=== PATIENT | male | born 1965 | race Caucasian/White ===

== ENCOUNTER 2021-05-03 14:22 | Inpatient (IN) | payer OTHER, SELFPAY ==
[2021-05-03] VITALS (10 sets, daily range): BP systolic 131–184; BP diastolic 81–103; PULSE 60–90; RESP 16–28; TEMP 36.6–37.6; O2SAT 95–100
--- NOTE | ~2021-05-03 | XR_ITS ---
XR abdomen NG/feed tube insert DATE: 05/03/2021 17:14 INDICATION: NG tube placement TECHNIQUE: Portable upright AP chest on 05/03/2021 at 1706 hours COMPARISON: None FINDINGS: The NG tube makes a 180 degree turn at the proximal level of the left mainstem bronchus wit h the distal tip directed cephalad beneath the level of the aortic arch. Normal heart size. The lower lung zones are clear. No pleural effusion is evident. Bilateral renal excretion of contrast material. IMPRESSION: NG tube turned upon itself in the mid thoracic area Repositioning is recommended Reviewed, dictated and finalized at [facility]. Reviewed, dictated and finalized at [facility].
--- NOTE | ~2021-05-03 | CT_ITS ---
EXAMINATION: CT abdomen pelvis w con EXAM DATE: 05/03/2021 15:47 INDICATION: Obstruction. History of colitis and colon surgery. TECHNIQUE: Spiral CT of the abdomen and pelvis was performed following intravenous injection of 100 m L Omnipaque 350. Axial, coronal and sagittal images of the abdomen and pelvis were reviewed. The do se-length product (DLP) for this examination was 851.34 mGy-cm. The exposure was tailored according to patient size (auto mA exposure control), and iterative reconstruction (ASIR) was used as additiona l dose reduction technique. Comparison is made to prior examination from 08/01/2012. FINDINGS: Trace perihepatic ascites. The liver, adrenal glands and pancreas are unremarkable. Isha l vein dilated at 18 mm and there is mild splenomegaly. Possible portal hypertension. Large cholelith iasis, gallbladder otherwise unremarkable. Portal and splenic veins are patent. Kidneys enhance sym metrically. There is no hydronephrosis. There is left superior calyceal 6 mm stone. The prostate is unremarkable. Small left inguinal fat-containing hernia. The bladder is unremarkable. There is no retroperitoneal or pelvic lymphadenopathy. There is mild scattered arteriosclerotic disease. Patient has had subtotal colectomy with several anastomosis sites. Proximal small bowel is normal in caliber. Most of the mid small bowel is dilated, up to 4.5 cm, with relative transition point identif ied in the right lower quadrant. Only small amount of fluid in distal small bowel beyond this. There is some colonic fluid, diarrhea. There is small sliding gastroesophageal hiatal hernia. No free intraperitoneal gas. The heart is normal in size. There are no pericardial or pleural effusions. The lung bases are unremarkable. There are no osteoblastic or osteolytic lesions identified. IMPRESSION: 1. Small bowel obstruction, probably adhesion related. Intact anastomoses. 2. Colonic fluid. Correlate for diarrhea. 3. Mild splenomegaly. Possible portal hypertension. 4. Cholelithiasis. Reviewed, dictated and finalized at [facility].
--- NOTE | ~2021-05-03 | XR_ITS ---
SMALL BOWEL SERIES ONLY INDICATION: Small bowel obstruction. Previous colectomy. TECHNIQUE: Serial plain films and fluoroscopic spot films are performed following oral demonstration of water-soluble contrast. COMPARISON: 05/03/2021 FINDINGS: Contrast was followed sequentially through the small bowel. The mucosal pattern is unremar kable. No evidence for stricture, polyp, diverticula or obstruction of flow of contrast. Transit ti me is normal. The small bowel is mildly distended, although no obstruction is identified. There are s urgical changes consistent with subtotal colectomy. Transit time to the rectum through the small teddy l is less than 1 hour. IMPRESSION: 1: No evidence for bowel obstruction. Transit time to the rectum less than 1 hour. Reviewed, dictated and finalized at [facility]. IMPRESSION: 1: No evidence for bowel obstruction. Transit time to the rectum less than 1 h our.
[2021-05-03 15:00] LABS: Basophils Percent Auto 0.2 % (0.2-1.2); Eosinophils Percent Auto 0.1 % (0-4.4); Hematocrit 48.3 % (42.0-52.0); Hemoglobin 16.8 g/dL (14.0-18.0); Immature Granulocyte Absolute 0.04 K/mm3 (0.00-0.031); Immature Granulocyte Percent A 0.3 % (0-0.5); Lymphocytes Absolute Auto 0.75 K/mm3 (0.9-3.2); Mean Corpuscular HGB Conc 34.8 g/dl (32-36); Mean Corpuscular Hemoglobin 31.5 pg (26-34); Mean Corpuscular Volume 90.6 fl (80-100); Mean Platelet Volume 8.9 fl (7.4-10.4); Monocytes Absolute Auto 0.7 K/mm3 (0.1-0.6); Monocytes Percent Auto 5.7 % (2.6-8.5); Neutrophils Absolute Auto 10.9 K/mm3 (1.3-6.7); Neutrophils Percent Auto 87.7 % (45.5-73.1); Platelet Count Result 147 k/mm3 (150-375); Red Blood Count 5.33 M/mm3 (4.6-6.20); Red Cell Distribution Width 12.7 % (11.5-14.5); White Blood Count 12.5 K/mm3 (4.5-10.0)
[2021-05-03 15:10] LABS: Alanine Aminotransferase 47 U/L (4-50); Albumin Level 4.7 g/dL (3.5-5.1); Alkaline Phosphatase 83 U/L (38-126); Anion Gap 12 mmol/L (8-16); Aspartate Amino Transferase 38 U/L (17-59); Bilirubin,Total 1.8 mg/dL (0.2-1.3); Blood Urea Nitrogen 12 mg/dL (9-20); Calcium 9.8 mg/dL (8.4-10.2); Carbon Dioxide 24 mmol/L (22-30); Chloride 105 mmol/L (98-107); Estimated CRCL calculation 76 ml/min; Estimated Glomerular Filt Rate > 60; Glucose 145 mg/dL (75-110); Lipase 87 U/L (23-300); Potassium 4.2 mmol/L (3.4-5.0); Sodium 141 mmol/L (137-145)
--- NOTE | 2021-05-03 16:03 | ED.ABDPAIN ---
HPI - Abdominal Pain General Chief Complaint: Abdominal Pain Stated Complaint: ABD PAIN,COLOSTOMY ISSUES Time Seen by Provider: 05/03/21 15:00 History of Present Illness HPI narrative: Patient is a 56-year-old male who presents ER with abdominal pain and distention. Began this morning. Feels similar to bowel obstructions he has had in the past. He tried using laxative and massage to alleviate it but did not work. He received morphine by EMS which is helped with some of this discomfort. Receives the majority of his care at the [facility]. Related Data Allergies Allergy/AdvReac Type Severity Reaction Status Date / Time No Known Allergies Allergy Verified 05/03/21 14:29 Review of Systems Review of Systems: All systems reviewed & are unremarkable except as noted in HPI and below Constitutional: Constitutional: Denies chills, Denies fever(s) and Denies weakness Cardiovascular: Cardiovascular: Denies chest pain and Denies radiating jaw, neck or arm pain Respiratory: Respiratory: Denies cough and Denies dyspnea Gastrointestinal: Gastrointestinal: Reports abdominal pain, Reports bloating, Denies nausea and Denies vomiting [facility] Past Medical History Medical History (Updated 05/03/21 @ 17:18 by Elliot Hicks DO) Ulcerative colitis Surgical History Surgical History (Updated 05/03/21 @ 16:08 by Agustin Araya MD) History of appendectomy History of colectomy History of inguinal hernia repair Social History Social History (Updated 05/03/21 @ 17:11 by Elliot Hicks DO) Smoking status: Never smoker Alcohol intake: current Drinks per week: 2 Substance use: never Exam Narrative: Exam Narrative: GENERAL: Uncomfortable-appearing, well-nourished, and in no acute distress. HEAD: Normocephalic, atraumatic. ENT: Mucous membranes moist. CHEST: Clear to auscultation. No respiratory distress. HEART: Regular rate and rhythm. Normal peripheral pulses. ABDOMEN: Soft, tender palpation right lower quadrant, modestly distended EXTREMITIES: Normal range of motion. No edema. SKIN: Warm, dry, no rash. NEURO: Alert and oriented x3. PSYCH: Normal mood and affect. Course Course Emergency Course: Patient informed of diagnosis and treatment plan. Admit to general surgery. Vital Signs Vital signs: Vital Signs Temperature 97.9 F 05/03/21 14:23 Pulse Rate 64 05/03/21 14:23 Respiratory Rate 16 05/03/21 14:23 Blood Pressure 137/100 H 05/03/21 14:23 Pulse Oximetry 100 05/03/21 14:23 Temperature 97.9 F 05/03/21 14:23 Pulse Rate 64 05/03/21 15:02 Respiratory Rate 24 H 05/03/21 15:02 Blood Pressure 154/81 H 05/03/21 16:31 Pulse Oximetry 100 05/03/21 15:02 MDM - Abdominal Pain Lab Data Result diagrams: 05/03/21 14:53 05/03/21 14:53 Labs: Lab Results 05/03/21 05/03/21 05/03/21 Range/Units 14:53 14:53 16:42 WBC 12.5 H (4.5-10.0) K/mm3 RBC 5.33 (4.6-6.20) M/mm3 Hgb 16.8 (14.0-18.0) g/dL Hct 48.3 (42.0-52.0) % MCV 90.6 (80-100) fl MCH 31.5 (26-34) pg MCHC 34.8 (32-36) g/dl RDW 12.7 (11.5-14.5) % Plt Count 147 L (150-375) k/mm3 MPV 8.9 (7.4-10.4) fl Immature Gran % (Auto) 0.3 (0-0.5) % Neut % (Auto) 87.7 H (45.5-73.1) % Lymph % (Auto) 6.0 L (18.3-44.2) % Woods % (Auto) 5.7 (2.6-8.5) % Eos % (Auto) 0.1 (0-4.4) % Baso % (Auto) 0.2 (0.2-1.2) % Lymph # (Auto) 0.75 L (0.9-3.2) K/mm3 Woods # (Auto) 0.7 H (0.1-0.6) K/mm3 Eos # (Auto) 0.0 (0-0.3) K/mm3 Baso # (Auto) 0.0 (0.0-0.1) K/mm3 Abs Immat Gran (auto) 0.04 H (0.00-0.031) K/mm3 Absolute Neuts (auto) 10.9 H (1.3-6.7) K/mm3 Absolute Nucleated RBC 0.0 (0.0-0.012) K/mm3 Nucleated RBC % 0.0 (0.0-0.2) % Sodium 141 (137-145) mmol/L Potassium 4.2 (3.4-5.0) mmol/L Chloride 105 (98-107) mmol/L Carbon Dioxide 24 (22-30) mmol/L Anion Gap 12 (8-16) mmol/L BUN 12
[2021-05-03] MEDS: MORPHINE SULFATE (*CRX) 2 MG/ML INJ ×2 (16:44→16:48)
[2021-05-03] MEDS: ONDANSETRON INJ 4 MG/2 ML VIAL IV PUSH ×2 (16:51→23:48)
[2021-05-03 17:02] LABS: Add Urine Microscopic? YES; Appearance Urine Clear (Clear); Bilirubin Urine Negative (Negative); Blood Urine 1+ (Negative); Color Urine Amber (Yellow); Glucose Urine UA Negative (Negative); Ketones Urine 1+ mg/dL (Negative); Leukocyte Esterase Ur Negative LEU/UL (Negative); Mucus Urine Few /lpf; Nitrate Urine Negative (Negative); Protein Urine 2+ mg/dL (Negative); RBC Urine 21-50 /hpf (0-2); WBC Urine 0-3 /hpf
--- NOTE | 2021-05-03 17:03 | PM.IMHP ---
H&P: HPI History of Present Illness Date/Time: 05/03/21 17:03 Chief Complaint: Abdominal pain, Nausea, Vomiting Narrative: This is a 56 yo man who presents to the ED with abdominal pain that started around midnight last night. He began developing worsening pain throughout the morning to the point that he couldn't tolerate it any longer and came to the ED. He has had nausea and vomiting. He had a BM yesterday but hasn't had any since. He is not passing flatus. He has a hx of subtotal colectomy for ulcerative colitis and usually has 10-15 loose BM's per day. He has had obstructions in the past that have required NG placement, but never required surgery for them. He has also had early symptoms of a SBO that he has been able to treat on his own at home with bowel rest and laxatives. He tried this last night with no benefit. Review of Systems Review of Systems: All systems reviewed & are unremarkable except as noted in HPI and below Constitutional: Constitutional: Denies chills and Denies fever(s) Cardiovascular: Cardiovascular: Denies chest pain and Denies dyspnea Gastrointestinal: Gastrointestinal: Reports as per HPI [facility] Past Medical History Medical History (Updated 05/03/21 @ 17:18 by Elliot Hicks DO) Ulcerative colitis Surgical History Surgical History (Updated 05/03/21 @ 16:08 by Agustin Araya MD) History of appendectomy History of colectomy History of inguinal hernia repair Social History Social History (Updated 05/03/21 @ 17:11 by Elliot Hicks DO) Smoking status: Never smoker Alcohol intake: current Drinks per week: 2 Substance use: never Meds Home Medications and Allergies Allergies Allergy/AdvReac Type Severity Reaction Status Date / Time No Known Allergies Allergy Verified 05/03/21 14:29 Vital Signs Vital Signs - 24 hr 05/03/21 14:23 05/03/21 14:29 05/03/21 14:47 Temperature 36.6 C Pulse Rate 64 69 60 Respiratory Rate 16 28 H Blood Pressure 137/100 H 137/100 H 152/81 H Pulse Oximetry 100 100 100 05/03/21 15:02 05/03/21 16:31 Temperature Pulse Rate 64 Respiratory Rate 24 H Blood Pressure 184/103 H 154/81 H Pulse Oximetry 100 Exam Const: General: cooperative and no acute distress Nutritional Appearance: average body habitus Orientation/consciousness: patient oriented x3 HENMT: Head: normal to inspection Ears: hearing grossly normal bilaterally Mouth: Yes Normal oral and palatal mucosa present Eyes: General: appearance normal, both eyes and all related structures Sclera: sclerae normal EOM: EOMs intact bilaterally Neck: Neck: normal visual inspection and full ROM Resp: Effort & Inspection: normal respiratory effort and able to speak in complete sentences Cardio: Jugular venous distension: no JVD Rate: regular rate Rhythm: regular rhythm Heart sounds: S1 normal heart sound present and S2 normal heart sound present GI: Inspection: distended and scar (long vertical midline scar) GI Palp: Yes Soft to palpation, Yes Tenderness to palpation present (GI) (periumbilical), No Guarding due to palpation present (GI), No Hernia present, No Palpable mass present and No Rebound tenderness present Percussion: Yes dullness to percussion Auscultation: Hypoactive bowel sounds present Rectal Exam: deferred Back/Spine/Pelvis: Cervical Spine: normal cervical lordosis and cervical ROM normal Skin: General skin exam: normal color and no rashes or lesions noted Neuro: General: patient oriented x3, moves all extremities, no focal motor deficits and CN's II-XI intact bilaterally Speech: normal speech Extrem: General: normal to inspection, full ROM and no clubbing, cyanosis or edema Psych: Appearance: grossly normal Mental Status: mental status grossly normal Speech and movement: Normal speech and movement present Affect: normal affect Attitude: cooperative Thought process: Normal thought process present H&P: Results Labs Labs: Short CBC
[2021-05-03 17:04] LABS: Specific Grav Ur 1.044 (1.001-1.035)
[2021-05-03] MEDS: SODIUM CHLORIDE 0.9% IV 1,000 ML 125 ML IV CONT (19:52)
--- NOTE | 2021-05-03 20:22 | ADMGEN ---
This patient, Abhijit Mathew, was admitted to [facility] Surg Room 326-01. Patient/family oriented to hospital policies and general routines including ID bracelet, bed and alarms, visiting hours, pain management, procedures, bathroom and other care routines, personal items, smoking policy, room service/diet, and visiting hours. Information on how to activate the Rapid Response Team has been discussed. Patient/Family are encouraged to report perceived risks to care and to ask questions if they do not understand what they are told or what they should do.
[2021-05-03] MEDS: MORPHINE SULFATE (*CRX) 4 MG/ML INJ IV PUSH (23:48)
[2021-05-04] MEDS: SODIUM CHLORIDE 0.9% IV 1,000 ML 125 ML IV CONT ×2 (04:31→21:51)
[2021-05-04 06:00] VITALS: BP 123/79; PULSE 89; RESP 18; TEMP 37.4; O2SAT 97
--- NOTE | 2021-05-04 09:38 | PM.PNGS ---
Progress Note: A&P Assessment and Plan (1) Small bowel obstruction: Code(s): K56.609 - Unspecified intestinal obstruction, unspecified as to partial versus complete obstruction Status: Acute Assessment and Plan: Patient clinically improving. Bowels are moving and symptoms resolving. KUB last night shows NG tube curled up in the esophagus. Will remove NG tube this morning and get a Gastrografin small bowel follow-through. If the contrast moves through without evidence of a SBO, then we will start a liquid diet. Additional Plan Discussed plan of care with Dr. Hicks. Subjective Subjective Date/Time Seen: 05/04/21 09:38 Patient reports: no new complaints, feels better, pain is less, flatus and bowel movement Interval history: Patient feeling much better this morning. Reports significant improvement abdominal pain and resolution and bloating. He reports flatus and 4 bowel movements this morning. Reports mild headache. No other complaints at this time. Review of Systems Review of Systems: All systems reviewed & are unremarkable except as noted in HPI and below Constitutional: Constitutional: Reports no additional constitutional complaints and Reports headache(s) Gastrointestinal: Gastrointestinal: Reports as per HPI and Reports no additional gastrointestinal complaints Exam Const: General: no acute distress Orientation/consciousness: patient oriented x3 Resp: Effort & Inspection: normal respiratory effort Auscultation: clear to auscultation bilaterally Cardio: Rate: regular rate Rhythm: regular rhythm GI: Inspection: other (mildly distended) GI Palp: Yes Soft to palpation, Yes Tenderness to palpation present (GI) (mild diffuse tenderness, reportedly improved), No Guarding due to palpation present (GI) and No Rebound tenderness present Auscultation: normal bowel sounds Neuro: General: moves all extremities and no focal motor deficits Extrem: General: normal to inspection and no clubbing, cyanosis or edema Psych: Mental Status: mental status grossly normal Thought process: Normal thought process present Objective Data Vital Signs Vital Signs: Vital Signs - 24 hr 05/03/21 14:23 05/03/21 14:29 05/03/21 14:47 Temperature 97.9 F Pulse Rate 64 69 60 Respiratory Rate 16 28 H Blood Pressure 137/100 H 137/100 H 152/81 H Pulse Oximetry 100 100 100 05/03/21 15:02 05/03/21 16:31 05/03/21 18:21 Temperature Pulse Rate 64 84 Respiratory Rate 24 H 16 Blood Pressure 184/103 H 154/81 H Pulse Oximetry 100 98 05/03/21 18:34 05/03/21 22:00 05/03/21 23:04 Temperature 99.7 F H Pulse Rate 90 Respiratory Rate 18 Blood Pressure 152/84 H 131/85 Pulse Oximetry 98 95 05/03/21 23:45 05/04/21 06:00 Temperature 98.2 F 99.4 F Pulse Rate 89 Respiratory Rate 18 Blood Pressure 123/79 Pulse Oximetry 97 Intake/Output Intake/Output: Intake & Output 05/01/21 05/02/21 05/03/21 05/04/21 23:59 23:59 23:59 23:59 Intake Total 65 1000 Output Total 200 150 Balance -135 850 Meds/Results Medications: Active Medications Generic Name Dose Route Start Last Admin Trade Name Freq PRN Reason Stop Dose Admin Acetaminophen 650 mg in 65 mls @ 260 mls/hr 05/03/21 16:38 05/03/21 22:24 Ofirmev 650 Mg Ivpb IVPB 05/04/21 16:39 Infused Q6H PRN Infusion Mild Pain (1-3) or Fever Sodium Chloride 1,000 mls @ 125 mls/hr 05/03/21 16:40 05/04/21 08:52 Normal Saline Iv IV CONT Not Given .Q8H PETE Morphine Sulfate 4 mg 05/03/21 16:38 05/03/21 23:48 Morphine Sulfate (*Crx) 4 Mg/Ml Inj IV PUSH 4 mg Q2H PRN Administration Pain Rated 7-10 Ondansetron HCl 4 mg 05/03/21 16:38 05/03/21 23:48 Ondansetron Inj 4 Mg/2 Ml Vial IV PUSH 4 mg Q4H PRN Administration Nausea Radiology Results: ITS Impressions Abdomen/Pelvis CT 05/03/21 15:48 IMPRESSION: 1. Small bowel obstruction, probably adhesion related. Intact anastomoses. 2. C
[2021-05-04 14:49] VITALS: BP 115/65; PULSE 76; RESP 12; TEMP 37.2; O2SAT 100
[2021-05-04] MEDS: ACETAMINOPHEN 325 MG TABLET 650 MG PO (21:51)
[2021-05-04 22:00] VITALS: BP 116/69; PULSE 65; RESP 16; TEMP 36.8; O2SAT 97
[2021-05-05] MEDS: SODIUM CHLORIDE 0.9% IV 1,000 ML 125 ML IV CONT (05:56)
[2021-05-05 06:00] VITALS: BP 137/85; PULSE 73; RESP 16; TEMP 36.3; O2SAT 98
--- NOTE | 2021-05-05 11:03 | PM.DS ---
DS: Admitting Diagnosis Admitting Diagnosis Admitting Diagnosis: Small bowel obstruction Ulcerative colitis s/p subtotal colectomy DS: Discharge Diagnosis Discharge Diagnosis (1) Small bowel obstruction: Code(s): K56.609 - Unspecified intestinal obstruction, unspecified as to partial versus complete obstruction Status: Acute (2) Ulcerative colitis: Code(s): K51.90 - Ulcerative colitis, unspecified, without complications Status: Inactive Assessment and Plan: Follow-up with GI at the [facility] as scheduled. DS: Summary Hospital Course Reason for hospitalization: This is a 56 yo man with a history of subtotal colectomy for ulcerative colitis, who presented to the ED with abdominal pain. He also has a history of having small bowel obstructions in the past that have all been able to resolve with conservative measures. He typically has 10-15 loose BM's per day. ED work-up showed evidence of a small bowel obstruction on the CT scan. He was admitted to our service in this setting. Hospital Course: We treated the small bowel obstruction initially with conservative measures, including NG tube decompression, bowel rest, IV fluids, analgesics, and antiemetics. He was monitored with serial abdominal exams and imaging. On day 2, he began moving his bowels and was improving clinically. Gastrografin small bowel follow through was obtained and showed normal transit time to the rectum in less than 1 hour. The NG tube was then removed and he was started on a clear liquid diet. He tolerated this well and was slowly advanced to a regular diet today. He continues to move his bowels and symptoms have nearly completely resolved. He is still feeling slightly sore on palpation, but no longer having abdominal pain, nausea, or vomiting. The patient is stable for discharge today. Discharge instructions discussed with the patient. Status at Discharge Functional status at discharge: independent ambulation Overall status at discharge: patient is back to baseline Time Spent with Patient Time attestation: Total time spent providing and/or coordinating discharge services: Time spent: Less than 30 minutes Exam Const: General: cooperative and no acute distress Orientation/consciousness: patient oriented x3 Resp: Effort & Inspection: normal respiratory effort Auscultation: clear to auscultation bilaterally Cardio: Rate: regular rate Rhythm: regular rhythm GI: Auscultation: normal bowel sounds Skin: General skin exam: normal color Neuro: General: gait normal, moves all extremities, Normal light touch and pain sensation, no focal motor deficits and CN's II-XI intact bilaterally Cognition (Neuro): normal cognition Speech: normal speech Motor exam (neuro): 5/5 motor strength present throughout, Pronator motor function not present, No tremor noted, Normal motor muscle tone present throughout and Motor abnormalities not present Sensory Exam: normal sensation Coordination: [id number] test normal and [id number] test normal Extrem: General: normal to inspection and no clubbing, cyanosis or edema Psych: Mental Status: mental status grossly normal Affect: normal affect Thought process: Normal thought process present DS: Data Data Completed and Pending Completed studies during hospitalization: ITS Impressions Abdomen/Pelvis CT 05/03/21 15:48 IMPRESSION: 1. Small bowel obstruction, probably adhesion related. Intact anastomoses. 2. Colonic fluid. Correlate for diarrhea. 3. Mild splenomegaly. Possible portal hypertension. 4. Cholelithiasis. Abdomen X-Ray 05/03/21 17:16 IMPRESSION: NG tube turned upon itself in the mid thoracic area Repositioning is recommended Small Bowel X-Ray 05/04/21 12:28 IMPRESSION: 1: No evidence for bowel obstruction. Transit time to the rectum less than 1 hour. Discharge Plan Discharge Attending physician on discharge: Elliot Hicks Discharging Clinician: Joaquín Aguilar
--- NOTE | 2021-05-05 13:15 | PC.NURSE ---
Pt is being discharged. IV removed and discharge instructions reviewed with pt and his . Both exhibited good understanding of discharge instructions. Pt was assisted by wheelchair to the front of the building by staff.
== END 2021-05-05 13:10 | disposition home or self-care (01) | DRG 389 ==
LOC: ANHED 17:18 → ANH3MEDSUR 05-05 11:06
PROVIDERS: Admitting Provider Surgery; Emergency Provider Emergency Medicine; Visit Provider Nurse Practitioner Family
DX: K56.609 Unspecified intestinal obstruction, unspecified as to partial versus complete obstruction (principal); K51.90 Ulcerative colitis, unspecified, without complications; Z90.49 Acquired absence of other specified parts of digestive tract
CPT/HCPCS: 36415; 51701; 74177; 74250; 80053; 81001; 83690; 85025; 96365; 96366; 96375; 99285; A9270; J0131; J2270; J2405; J7030; Q9967

== ENCOUNTER 2021-05-24 18:35 | Emergency (ER) | payer OTHER, SELFPAY ==
[2021-05-24 18:44] VITALS: BP 145/96; PULSE 86; RESP 18; TEMP 36.8; O2SAT 98
--- NOTE | 2021-05-24 18:52 | ED.WOUNDLAC ---
HPI - Wound/Laceration General Chief Complaint: Wound/Laceration Stated Complaint: laceration Time Seen by Provider: 05/24/21 18:52 Source: patient Mode of arrival: ambulatory Limitations: no limitations History of Present Illness HPI narrative: Abhijit Del Valle is a 56 yo male with no PMH who comes in for laceration of his head from cracking his head up against a 3 lance trailer hitch POA. Less about 4 cm in length and patient requires a tetanus shot because he does not remember the last time he had one. Does not take any medication although he is nervous about getting the laceration repaired Related Data Home Medications Medication Instructions Recorded Confirmed No Home Medications 05/03/21 05/24/21 Allergies Allergy/AdvReac Type Severity Reaction Status Date / Time No Known Allergies Allergy Verified 05/24/21 18:39 Review of Systems Review of Systems: Narrative: CONSTITUTIONAL: Denies fever, chills, sweats. EYES: Denies visual changes, redness, discharge. ENT: Denies rhinorrhea, congestion, sore throat, otalgia. CARDIOVASCULAR: Denies chest pain, palpitations, edema. RESPIRATORY: Denies dyspnea, wheezing, cough GASTROINTESTINAL: Denies abdominal pain, nausea, vomiting, diarrhea. GENITOURINARY: Denies dysuria, hematuria, abnormal discharge SKIN: Denies rash or itching. 4 cm laceration to his head controlled bleeding NEUROLOGIC: Denies numbness, or focal weakness. PSYCHIATRIC: Denies anxiety or depression. [facility] Past Medical History Medical History Ulcerative colitis Surgical History Surgical History History of appendectomy History of colectomy History of inguinal hernia repair Family History Family History Sibling Diabetes mellitus Mother Lung cancer Social History Social History Smoking status: Never smoker Alcohol intake: current Drinks per week: 1 Substance use: never Gender identity (if verbalized by the patient): Male Spiritual care concerns: No Comments At time of signature, I agree with nursing past medical, surgical, social and family history. There is no relevant family history pertinent to the presenting complaint. Blood pressure is elevated at this visit probably due to mechanism of injury and pain-recommend follow-up in the next week with his primary care physician Exam Narrative: Exam Narrative: GENERAL: This is a well-nourished, well-developed patient, in [id number] distress. HEAD: normocephalic, atraumatic. EYES: Sclera clear/white. Vision is grossly intact. EARS: External ears normal, Hearing grossly intact. NOSE: External nose normal without nasal discharge, nares without redness, no rhinorrhea. THROAT: Mucous membranes moist, NECK: Neck supple, CARDIOVASCULAR: Regular rate and rhythm without murmurs, gallops, or rubs. RESPIRATORY: Clear to auscultation. Breath sounds equal bilaterally. No wheezes, rales, or rhonchi. GASTROINTESTINAL: Abdomen soft, , SKIN: warm, intact with no suspicious lesions or rash, good texture and turgor. Lacerations left top of head 4 cm in length control bleeding NEURO: awake, alert, and oriented to person, place and time. There were no obvious focal neurologic abnormalities. Steady gait EXTREMITIES: Normal range of motion. BACK: Nontender without deformity Course Course Emergency Course: [facility] scalp after hitting head Repaired with fior after cleaning; injection given Follow-up in a week with PCP to have fior removed. Staple remover given to patient Vital Signs Vital signs: Vital Signs Temperature 98.3 F 05/24/21 18:44 Pulse Rate 86 05/24/21 18:44 Respiratory Rate 18 05/24/21 18:44 Blood Pressure 145/96 H 05/24/21 18:44 Pulse Oximetry 98 0705
[2021-05-24] MEDS: TETANUS,DIPHTHERIA,AC PERTUSSIS ADULT (0.5 ML) BOOSTRIX IM (19:13)
== END 2021-05-24 19:25 | disposition home or self-care (01) ==
PROVIDERS: Emergency Provider Nurse Practitioner
DX: S01.01XA Laceration without foreign body of scalp, initial encounter (principal); W22.8XXA Striking against or struck by other objects, initial encounter; Z23 Encounter for immunization; Z85.9 Personal history of malignant neoplasm, unspecified
CPT/HCPCS: 12002; 90471; 90715; 99212; G0463

== ENCOUNTER 2022-02-18 01:49 | Inpatient (IN) | payer OTHER, SELFPAY ==
[2022-02-18] VITALS (13 sets, daily range): BP systolic 125–160; BP diastolic 63–94; PULSE 61–90; RESP 10–30; TEMP 36–37.3; O2SAT 93–100; BMI 30.2
--- NOTE | ~2022-02-18 | XR_ITS ---
EXAMINATION: XR abdomen NG/feed tube insert DATE: 02/18/2022 06:01 INDICATION: Nasogastric tube placement TECHNIQUE: A supine view of the abdomen and lower chest was obtained for evaluation of feeding tube placement. COMPARISON: None. FINDINGS: The nasogastric tube tip within the small within a small hiatal hernia. Bilateral nephrograms with ex creted contrast in the renal collecting systems from the earlier contrast-enhanced CT. No dilated loo ps of gas-filled bowel in the visualized abdomen. Mild linear discoid atelectasis at the left lung ba se. Heart size is normal. IMPRESSION: 1. Nasogastric tube within a small hiatal hernia. Reviewed, dictated and finalized at location A.
--- NOTE | ~2022-02-18 | CT_ITS ---
EXAMINATION: CT abdomen pelvis w con DATE: 02/18/2022 03:07 INDICATION: Abdominal pain. Small bowel obstruction. TECHNIQUE: Computed tomography (CT) of the abdomen and pelvis was performed with 100 mL Omnipaque-350 intravenous contrast. Automated exposure control and iterative reconstruction technique were employe d. The dose-length product was 831.18 mGy-cm. COMPARISON: None FINDINGS: Mild dependent atelectasis in bilateral lower lobes. Heart size is normal. No pericardial or pleural effusion. 2.5 cm calcified gallstone in the otherwise normal-appearing gallbladder. Liver, pancreas a nd bilateral adrenal glands are normal. 6 x 5 mm nonobstructing stone in the upper pole calyx of the left kidney. 1 mm stone at the upper pole calyx of the right kidney. Splenomegaly measuring 16.0 cm. Status post proctocolectomy with likely J-pouch formation in the pelvis with anal anastomosis. Small bowel obstruction with mildly dilated fluid-filled loops of small bowel extending to moderately dilat ed segment of small bowel with pseudofeces up to 4.6 cm medially proximal to the transition point in the right abdomen in a small bowel anastomosis. The small bowel distal to the anastomosis decompresse d. Bladder is normal. Mild prostatomegaly with 1.4 similar region of subtle nodular enhancement at th e right side of the gland. Small fat-containing left inguinal hernia. No free intraperitoneal gas or fluid. No pathologically enlarged abdominal or pelvic lymphadenopathy. Moderate lower thoracic spondy losis with severe spondylosis at L5-S1 and mild to moderate intervening lumbar spondylosis. Moderate to severe left and mild right hip osteoarthritis. IMPRESSION: 1. Small bowel obstruction at an ileal anastomosis in the right abdomen. 2. Cholelithiasis. 3. Splenomegaly. 4. Postoperative change of the proximal colectomy with anal anastomosis of a likely ileal J-pouch. 5. Small fat-containing left inguinal hernia. Reviewed, dictated and finalized at location A. IMPRESSION: 1. Small bowel obstruction at an ileal anastomosis in the right abdomen. 2. Cholelithiasis. 3. Splenomegaly. 4. Postoperative change of the proximal colectomy with anal anastomosis of a li leon ileal J-pouch. 5. Small fat-containing left inguinal hernia.
--- NOTE | 2022-02-18 01:56 | ED.ABDPAIN ---
HPI - Abdominal Pain General Chief Complaint: Abdominal Pain Stated Complaint: i have an obstruction Time Seen by Provider: 02/18/22 01:51 Source: patient and family Mode of arrival: wheelchair Limitations: no limitations History of Present Illness HPI narrative: Patient is a 56-year-old male with a history of colectomy, recurrent small bowel obstruction, presenting for evaluation of abdominal pain, distention, nausea, vomiting. Patient states that his symptoms are consistent with previous small bowel obstruction, states he has had over 15 small bowel obstructions in the past. Reports chills, diaphoresis, abdominal distention, aching, sharp pain that began around noon today. It is worse with movement. Patient feels improved if he lays on his left side. Patient reports he had a bowel movement this morning, but reports he is no longer passing any gas this afternoon and evening. He denies any chest pain or shortness of breath. Denies dysuria or hematuria. No history of nephrolithiasis. Patient with history of colectomy secondary to ulcerative colitis. Also history of appendectomy, inguinal hernia repair. I reviewed the patient's chart, he had admission approximately 1 year ago in which his small bowel obstruction resolved with observation. Related Data Home Medications Medication Instructions Recorded Confirmed No Home Medications 05/03/21 05/24/21 Allergies Allergy/AdvReac Type Severity Reaction Status Date / Time No Known Allergies Allergy Verified 05/24/21 18:39 Review of Systems Review of Systems: CONSTITUTIONAL: Denies fever, reports chills and diaphoresis EYES: Denies visual changes, redness, or discharge. ENT: Denies rhinorrhea, congestion, sore throat, or otalgia. CARDIOVASCULAR: Denies chest pain, palpitations, or edema. RESPIRATORY: Denies cough or dyspnea. GASTROINTESTINAL: Reports abdominal pain, nausea, vomiting GENITOURINARY: Denies dysuria or hematuria. SKIN: Denies rash or itching. MUSCULOSKELETAL: Denies back pain, joint pain, or myalgia. NEUROLOGIC: Denies headache, numbness, or weakness. FOR[facility]LY [facility] Past Medical History Medical History Ulcerative colitis Surgical History Surgical History History of appendectomy History of colectomy History of inguinal hernia repair Family History Family History Sibling Diabetes mellitus Mother Lung cancer Social History Social History Smoking status: Never smoker Alcohol intake: current Drinks per week: 1 Substance use: never Gender identity (if verbalized by the patient): Male Spiritual care concerns: No Exam Narrative: GENERAL: Awake, alert, distressed, uncomfortable appearing, diaphoretic HEAD: Normocephalic, atraumatic. EYES: PERRLA and EOMI. ENT: Nares clear, no rhinorrhea or epistaxis. Mucous membranes moist. NECK: Supple. CHEST: No respiratory distress, tachypneic, hyperventilating, lungs are clear to auscultation bilaterally HEART: Tachycardic rate, sinus rhythm ABDOMEN: Mild distention, tender throughout without rigidity or guarding, hypoactive bowel sounds in all 4 quadrants EXTREMITIES: Normal range of motion. No edema. SKIN: Warm, dry, no rash. NEURO:No focal deficits. Alert and oriented x3 Course Vital Signs Vital signs: Vital Signs Temperature 36.5 C 02/18/22 02:00 Pulse Rate 74 02/18/22 02:00 Respiratory Rate 28 H 02/18/22 02:00 Blood Pressure 143/84 H 02/18/22 02:00 Pulse Oximetry 98 02/18/22 02:00 Temperature 36.5 C 02/18/22 02:00 Pulse Rate 87 02/18/22 06:31 Respiratory Rate 14 02/18/22 06:31 Blood Pressure 147/92 H 02/18/22 06:31 Pulse Oximetry 98 02/18/22 06:31 MDM - Abdominal Pain MDM Narrative Medical decision making narrative: Patient presenting
[2022-02-18] MEDS: MORPHINE SULFATE (*CRX) 4 MG/ML INJ IV PUSH ×2 (02:05→03:57)
[2022-02-18] MEDS: ONDANSETRON INJ 4 MG/2 ML VIAL IV PUSH ×2 (02:05→07:56)
[2022-02-18] MEDS: SODIUM CHLORIDE 0.9% IV 1,000 ML 999 ML IV CONT (02:06)
[2022-02-18 02:13] LABS: Basophils Percent Auto 0.2 % (0.2-1.2); Hemoglobin 17.9 g/dL (14.0-18.0); Immature Granulocyte Absolute 0.04 K/mm3 (0.00-0.031); Immature Granulocyte Percent A 0.3 % (0-0.5); Lymphocytes Absolute Auto 2.77 K/mm3 (0.9-3.2); Lymphocytes Percent Auto 20.4 % (18.3-44.2); Mean Corpuscular HGB Conc 35.8 g/dl (32-36); Mean Corpuscular Hemoglobin 31.9 pg (26-34); Mean Corpuscular Volume 89.1 fl (80-100); Mean Platelet Volume 8.9 fl (7.4-10.4); Monocytes Absolute Auto 0.8 K/mm3 (0.1-0.6); Monocytes Percent Auto 5.7 % (2.6-8.5); Neutrophils Percent Auto 73.4 % (45.5-73.1); Platelet Count Result 207 k/mm3 (150-375); Red Blood Count 5.61 M/mm3 (4.6-6.20); Red Cell Distribution Width 12.6 % (11.5-14.5); White Blood Count 13.6 K/mm3 (4.5-10.0)
[2022-02-18 02:22] LABS: Alanine Aminotransferase 68 U/L (4-50); Albumin Level 4.9 g/dL (3.5-5.1); Alkaline Phosphatase 130 U/L (38-126); Anion Gap 12 mmol/L (8-16); Aspartate Amino Transferase 43 U/L (17-59); Bilirubin,Total 1.9 mg/dL (0.2-1.3); Blood Urea Nitrogen 14 mg/dL (9-20); Calcium 10.3 mg/dL (8.4-10.2); Carbon Dioxide 25 mmol/L (22-30); Chloride 103 mmol/L (98-107); Estimated CRCL calculation 82 ml/min; Estimated Glomerular Filt Rate > 60; Glucose 158 mg/dL (65-110); Lipase 133 U/L (23-300); Potassium 3.5 mmol/L (3.4-5.0); Sodium 140 mmol/L (137-145)
[2022-02-18 02:23] LABS: Lactic Acid Reflex 1.8 mmol/L (0.7-2.1)
[2022-02-18] MEDS: HYDROmorphone HCL INJ (*CRX) 1 MG/ML SYR IV PUSH (02:23)
--- NOTE | 2022-02-18 03:21 | PC.NURSE ---
Pt refusing straight catheterization, pt unable to provide urine sample at this time.
[2022-02-18] MEDS: HYDROmorphone HCL INJ (*CRX) 1 MG/ML SYR 0.5 MG IV PUSH ×2 (05:24→07:56)
[2022-02-18] MEDS: SODIUM CHLORIDE 0.9% IV 1,000 ML 125 ML IV CONT ×2 (06:47→20:25)
--- NOTE | 2022-02-18 07:13 | PC.NURSE ---
NG placed from 55 to 59 at [facility] per ERP Dr. Dallin HINTON.
[2022-02-18 07:37] LABS: SARS-CoV-2 RNA PCR Negative
--- NOTE | 2022-02-18 10:15 | PM.IMHP ---
H&P: HPI History of Present Illness Date/Time: Date of Service 02/18/22 1030 56M with a past medical history of Ulcerative Colitis s/p total colectomy and ileoanal j pouch, recurrent SBO who presented to the ED with abdominal pain. Patient says he was in his usual state of health until around noon yesterday. Says he abdomen started to feel painfully tight, which is how it usually feels when he has a bowel obstruction. He subsequently developed nausea and vomited once prior to coming to the ED. At baseline, he says he has 12-15 bowel movements a day. He has not had a bowel movement since noon yesterday and he has not had flatus since noon yesterday (02/17/2022). He denies fever, chills, cough, SOB, chest pain, dysuria. He says he vomited multiple times after arriving to the emergency department. Says he does not remember the color of his vomit. In ED, electrolytes normal, leukocytosis of [address] A/P w/ small bowel obstruction and ileus at anastomosis. KUB NGT in hiatal hernia. covid 19 negative. Chief Complaint: abdominal pain Review of Systems Constitutional: Constitutional: Denies body ache(s), Denies chills, Denies difficulty sleeping and Denies night sweats Eyes: Eyes: Denies as per HPI ENT: Denies nasal congestion Respiratory: Respiratory: Denies cough and Denies dyspnea Gastrointestinal: Gastrointestinal: Reports nausea and Reports vomiting PMFSH Past Medical History Medical History (Updated 02/18/22 @ 19:31 by Janee Salvador MD) Ulcerative colitis Surgical History Surgical History History of appendectomy History of colectomy History of inguinal hernia repair Family History Family History Sibling Diabetes mellitus Mother Lung cancer Social History Social History Smoking status: Never smoker Alcohol intake: current Drinks per week: 1 Substance use: never Gender identity (if verbalized by the patient): Male Spiritual care concerns: No Meds Home Medications and Allergies Home Medications Medication Instructions Recorded Confirmed Type No Home Medications 05/03/21 02/18/22 History Allergies Allergy/AdvReac Type Severity Reaction Status Date / Time No Known Allergies Allergy Verified 05/24/21 18:39 Vital Signs Vital Signs - 24 hr 02/18/22 02:00 02/18/22 02:16 02/18/22 02:44 Temperature 97.7 F Pulse Rate 74 69 Respiratory Rate 28 H 30 H Blood Pressure 143/84 H 149/94 H Pulse Oximetry 98 100 100 02/18/22 03:21 02/18/22 03:31 02/18/22 04:16 Temperature Pulse Rate 72 68 61 Respiratory Rate 16 12 10 L Blood Pressure 160/84 H 146/79 H 157/76 H Pulse Oximetry 97 97 97 02/18/22 05:01 02/18/22 05:46 02/18/22 06:31 Temperature Pulse Rate 69 77 87 Respiratory Rate 20 16 14 Blood Pressure 156/81 H 154/90 H 147/92 H Pulse Oximetry 97 98 98 02/18/22 08:49 02/18/22 14:57 02/18/22 15:50 Temperature 96.8 F L Pulse Rate 74 90 Respiratory Rate 16 18 Blood Pressure 134/75 126/74 Pulse Oximetry 96 96 93 Exam Narrative: GENERAL: NAD, cooperative HEENT: Normocephalic, atraumatic, anicteric, nares clear, oropharynx moist and clear, dentition ok NECK: Supple CV: Normal S1, S2, RRR, No MRG RESP: CTAB, Normal work of breathing. Abdomen: Soft, minimally distended EXTREMITIES: Warm and well perfused, no clubbing, cyanosis, or edema. +2 Distal pulses bilaterally. SKIN: warm, dry and intact. NEURO: CN 2-12 grossly H&P: Results Labs Labs: Short CBC 02/18/22 Range/Units 02:03 WBC 13.6 H (4.5-10.0) K/mm3 Hgb 17.9 (14.0-18.0) g/dL Hct 50.0 (42.0-52.0) % Plt Count 207 (150-375) k/mm3 BMP 02/18/22 02:03 Sodium 140 Potassium 3.5 Chloride 103 Carbon Dioxide 25 BUN 14 Creatinine 1.10 Glucose 158 H Calcium 10.3 H Liver Function 02/18/22
[2022-02-18] MEDS: KCL 20 MEQ/SW 100 ML 100 ML 50 MEQ IVPB (10:17)
--- NOTE | 2022-02-18 10:23 | ADMGEN ---
This patient, Abhijit Mathew, was admitted to [facility] Surg Room [id number]. Patient/family oriented to hospital policies and general routines including ID bracelet, bed and alarms, visiting hours, pain management, procedures, bathroom and other care routines, personal items, smoking policy, room service/diet, and visiting hours. Information on how to activate the Rapid Response Team has been discussed. Patient/Family are encouraged to report perceived risks to care and to ask questions if they do not understand what they are told or what they should do.
--- NOTE | 2022-02-18 13:47 | PM.CNGS ---
Assessment and Plan Assessment and plan (1) Small bowel obstruction: Code(s): K56.609 - Unspecified intestinal obstruction, unspecified as to partial versus complete obstruction Status: Acute Assessment and Plan: had BM recently, reports he is feeling much improved, will clamp NG and start sips of clears, hopefully cont to progress and able to remove NG and ADAT, encourage OOB, ambulation, will need endoscopy as outpt to evaluate anastomosis History of Present Illness Consult details Consult date: 02/18/22 Reason for consult: abdominal pain Requesting physician: Isiah Mcgee MD Narrative: Pt is a 56 y/o M c h/o UC s/p subtotal colectomy c ileoanal J pouch anastomosis in 1996 presenting c recurrent SBO. Pt reports current episode started around noon yesterday. Pt reports he had normal BM earlier in the day. Pt reports severe crampy abd pain assoc c N/V. Pt denies any bowel fxn since episode started. Pt reports he normally has 10-15 loose BMs daily. Pt has had multiple episode of SBO all treated conservatively. Review of Systems Constitutional: Constitutional: Reports anorexia, Denies chills, Reports fatigue, Denies lethargy, Denies malaise, Reports poor appetite, Denies weakness, Denies weight gain and Denies weight loss Eyes: Eyes: Reports no additional eye complaints ENT: Reports system reviewed and no additional complaints, except as documented Cardiovascular: Cardiovascular: Reports no additional cardiovascular complaints Respiratory: Respiratory: Reports no additional respiratory complaints Gastrointestinal: Gastrointestinal: Reports as per HPI, Reports abdominal pain, Reports belching, Reports bloating, Reports change in bowel habits, Reports constipation, Reports GI cramping, Reports loose stools, Reports nausea, Reports vomiting and Denies hematemesis Genitourinary: Genitourinary: Reports no additional male genitourinary complaints Musculoskeletal: Musculoskeletal: Reports no additional musculoskeletal complaints Integumentary/Breasts: Skin/Breast: Reports system reviewed and no additional complaints, except as docu Neurologic: Reports system reviewed and no additional complaints, except as documented Psychiatric: Psychiatric: Reports no additional psychiatric complaints Endocrine: Endocrine: Reports no additional endocrine complaints Hematologic/Lymphatic: Hematologic/Lymphatic: Reports no additional hematologic/lymphatic complaints Allergic/Immunologic: Allergic/Immunologic: Reports no additional allergic/immunologic complaints PMFSH Past Medical History Medical History Ulcerative colitis Surgical History Surgical History History of appendectomy History of colectomy History of inguinal hernia repair Family History Family History Sibling Diabetes mellitus Mother Lung cancer Social History Social History Smoking status: Never smoker Alcohol intake: current Drinks per week: 1 Substance use: never Gender identity (if verbalized by the patient): Male Spiritual care concerns: No Meds Home Medications and Allergies Home Medications Medication Instructions Recorded Confirmed Type No Home Medications 05/03/21 05/24/21 History Allergies Allergy/AdvReac Type Severity Reaction Status Date / Time No Known Allergies Allergy Verified 05/24/21 18:39 Vital Signs Vital Signs - 24 hr 02/18/22 02:00 02/18/22 02:16 02/18/22 02:44 Temperature 36.5 C Pulse Rate 74 69 Respiratory Rate 28 H 30 H Blood Pressure 143/84 H 149/94 H Pulse Oximetry 98 100 100 02/18/22 03:21 02/18/22 03:31 02/18/22 04:16 Temperature Pulse Rate 72 68 61 Respiratory Rate 16 12 10 L Blood Pressure 160/84 H 146/79 H 157/76 H Pulse Oximetry 97 97 97 0
[2022-02-19 05:37] VITALS: BP 120/73; PULSE 92; RESP 16; TEMP 37.7; O2SAT 98
[2022-02-19] MEDS: SODIUM CHLORIDE 0.9% IV 1,000 ML 125 ML IV CONT (06:10)
[2022-02-19 06:52] LABS: Hematocrit 41.8 % (42.0-52.0); Hemoglobin 14.5 g/dL (14.0-18.0); Mean Corpuscular HGB Conc 34.7 g/dl (32-36); Mean Corpuscular Hemoglobin 31.9 pg (26-34); Mean Corpuscular Volume 92.1 fl (80-100); Mean Platelet Volume 9.1 fl (7.4-10.4); Platelet Count Result 136 k/mm3 (150-375); Red Blood Count 4.54 M/mm3 (4.6-6.20); Red Cell Distribution Width 13.1 % (11.5-14.5); White Blood Count 3.5 K/mm3 (4.5-10.0)
[2022-02-19 07:04] LABS: Anion Gap 7 mmol/L (8-16); Blood Urea Nitrogen 25 mg/dL (9-20); Calcium 8.3 mg/dL (8.4-10.2); Carbon Dioxide 24 mmol/L (22-30); Chloride 104 mmol/L (98-107); Estimated CRCL calculation 82 ml/min; Estimated Glomerular Filt Rate > 60; Glucose 118 mg/dL (65-110); Magnesium 2.2 mg/dL (1.6-2.3); Phosphorus 2.2 mg/dL (2.5-4.5); Potassium 4.1 mmol/L (3.4-5.0); Sodium 135 mmol/L (137-145)
[2022-02-19 07:41] LABS: Band Neutrophils Percent 8 % (0-6); Basophils Absolute Manual 0.03 K/mm3 (0.0-0.1); Basophils Percent Manual 1 % (0-1); Lymphocytes Absolute Manual 0.38 K/mm3 (1.1-4.5); Monocytes Absolute Manual 0.49 K/mm3 (0.1-0.90); Monocytes Percent Manual 14 % (3-9); Neutrophils Absolute Manual 2.59 K/mm3 (1.3-6.7); Neutrophils Percent Manual 66 % (46-73); Platelet Estimate Decreased (Adequate); Total Cells Counted 100
[2022-02-19 08:00] VITALS: BP 105/59; PULSE 77; RESP 17; TEMP 36.6; O2SAT 97
[2022-02-19] MEDS: ENOXAPARIN 40 MG/0.4 ML SYRINGE SUB-Q (08:45)
[2022-02-19] MEDS: SODIUM PHOSPHATE 20 MM in DEXTROSE 5% IN WATER 250 ML 50 MM IVPB (08:45)
--- NOTE | 2022-02-19 11:47 | PM.PNGS ---
Progress Note: A&P Assessment and Plan (1) Small bowel obstruction: Code(s): K56.609 - Unspecified intestinal obstruction, unspecified as to partial versus complete obstruction Status: Acute Assessment and Plan: slowly improving, cont clears for now and slowly advance as tolerated, will need endoscopy as outpatient to evaluate pouch/anastomosis, ok to dc home from surgical standpoint Subjective Subjective Date/Time Seen: 02/19/22 11:47 feels better today, still c some mild abd pain/cramping, gina clears Review of Systems Review of Systems: All systems reviewed & are unremarkable except as noted in HPI and below Exam Const: General: cooperative, comfortable and no acute distress Nutritional Appearance: overweight Orientation/consciousness: patient oriented x3 Resp: Auscultation: clear to auscultation bilaterally Cardio: Rate: regular rate Rhythm: regular rhythm GI: Inspection: normal to inspection, distended and incision GI Palp: Yes Soft to palpation, Yes Tenderness to palpation present (GI), No Guarding due to palpation present (GI) and No Rigid due to palpation Objective Data Vital Signs Vital Signs: Vital Signs - 24 hr 02/18/22 14:57 02/18/22 15:50 02/18/22 22:00 Temperature 36.0 C L 37.3 C Pulse Rate 90 71 Respiratory Rate 18 20 Blood Pressure 126/74 125/63 Pulse Oximetry 96 93 98 02/19/22 05:37 02/19/22 08:00 Temperature 37.7 C H 36.6 C Pulse Rate 92 77 Respiratory Rate 16 17 Blood Pressure 120/73 105/59 L Pulse Oximetry 98 97 Intake/Output Intake/Output: Intake & Output 02/16/22 02/17/22 02/18/22 02/19/22 23:59 23:59 23:59 23:59 Intake Total 2300 2100 Output Total 1100 100 Balance 1200 2000 Meds/Results Medications: Active Medications Generic Name Dose Route Start Last Admin Trade Name Freq PRN Reason Stop Dose Admin Enoxaparin Sodium 40 mg 02/19/22 09:00 02/19/22 08:45 Enoxaparin 40 Mg/0.4 Ml Syringe SUB-Q 40 mg DAILY PETE Administration Hydromorphone HCl 0.5 mg 02/18/22 05:29 02/18/22 07:56 Hydromorphone Hcl Inj (*Crx) 1 Mg/Ml Syr IV PUSH 0.5 mg Q4H PRN Administration Pain Rated 7-10 Sodium Chloride 1,000 mls @ 125 mls/hr 02/18/22 05:30 02/19/22 06:10 Normal Saline Iv IV CONT 125 mls/hr .Q8H PETE Administration Sodium Phosphate 20 mm/ 256.6667 mls @ 50 mls/hr 02/19/22 07:46 02/19/22 08:45 Dextrose IVPB 02/19/22 12:53 50 mls/hr ONCE ONE Administration Ondansetron HCl 4 mg 02/18/22 05:29 02/18/22 07:56 Ondansetron Inj 4 Mg/2 Ml Vial IV PUSH 4 mg Q4H PRN Administration Nausea Radiology Results: ITS Impressions Abdomen X-Ray 02/18/22 06:52 IMPRESSION: 1. Nasogastric tube within a small hiatal hernia. Abdomen/Pelvis CT 02/18/22 08:35 IMPRESSION: 1. Small bowel obstruction at an ileal anastomosis in the right abdomen. 2. Cholelithiasis. 3. Splenomegaly. 4. Postoperative change of the proximal colectomy with anal anastomosis of a likely ileal J-pouch. 5. Small fat-containing left inguinal hernia. Labs Labs: Laboratory Results - last 24 hr 02/19/22 02/19/22 05:50 05:50 WBC 3.5 L RBC 4.54 L Hgb 14.5 D Hct 41.8 L MCV 92.1 MCH 31.9 MCHC 34.7 RDW 13.1 Plt Count 136 L MPV 9.1 Immature Gran % (Auto) Not Reportable Neut % (Auto) Not Reportable Lymph % (Auto) Not Reportable [place] % (Auto) Not Reportable Eos % (Auto) Not Reportable Baso % (Auto) Not Reportable Lymph # (Auto) Not Reportable [place] # (Auto) Not Reportable Eos # (Auto) Not Reportable Baso # (Auto) Not Reportable Abs Immat Gran (auto) Not Reportable Absolute Neuts (auto) Not Reportable Absolute Nucleated RBC Not Reportable Total Counted 100 Neutrophils % (Manual) 66 Band Neutrophils % 8 H Lymphocytes % (Manual) 11.0 L Monocytes % (Manual) 14 H Basophils % (Manual) 1 Nucleated RBC % Not Reportable Abs Neuts (Manual) 2.59 Abs Lymph
--- NOTE | 2022-02-19 14:13 | PM.DS ---
DS: Admitting Diagnosis Discharge Date 02/19/2022 Admitting Diagnosis abdominal pain DS: Discharge Diagnosis Discharge Diagnosis (1) Small bowel obstruction: Code(s): K56.609 - Unspecified intestinal obstruction, unspecified as to partial versus complete obstruction Status: Acute Assessment and Plan: CT A/P with small bowl obstruction. NGT 1.5L output. Patient feeling better and has had multiple bowel movements -Pain control with hydromorphone -IVFs -NGT -Appreciate recommendations from General Surgery (2) Leukocytosis: Code(s): D72.829 - Elevated white blood cell count, unspecified Status: Acute Assessment and Plan: Likely reactive. COVID 19 negative. No URI sx. UA with no signs infection. Will monitor fever curve. -Will get AM CXR -CBC AM (3) Ulcerative colitis: Code(s): K51.90 - Ulcerative colitis, unspecified, without complications Status: Acute Assessment and Plan: Hx of UC s/p total colectomy and lieoanal j pouch. DS: Summary Hospital Course Hospital Course: 56M with a past medical history of Ulcerative Colitis s/p total colectomy & ileoanal j pouch, recurrent SBO who was admitted for a small bowel obstruction after developing abdominal pain, nausea vomiting and no longer having his usual 12-15 bowel movements a day. CT abomen pelvis showed a small bowel obstruction at the ileal anastomosis. General Surgery was consulted. NGT was placed. Patient had a bowel movement and felt better. He desired to be discharged home on a clear liquid diet and General surgery agreed this was permissible. Patient advised to follow up with PCP in a week and with general surgery for an endoscopy. Phosphorus was noted to be low on the morning of discharged, so patient was given sodium phosphate. Patient discharged to home on a clear liquid diet. Time Spent with Patient Time attestation: Total time spent providing and/or coordinating discharge services: Exam Narrative: GENERAL: NAD, cooperative HEENT: Normocephalic, atraumatic, anicteric NECK: Supple CV: Normal S1, S2, RRR, No MRG RESP: CTAB, Normal work of breathing. Abdomen: Soft, nontender, minimally distended. +BS, no peritoneal signs. no guarding. EXTREMITIES: Warm and well perfused, no clubbing, cyanosis, or edema. SKIN: warm, dry and intact. NEURO: CN 2-12 grossly intact DS: Data Data Completed and Pending Labs on day of discharge: Labs from last 24 hours 02/19/22 02/19/22 05:50 05:50 WBC 3.5 L RBC 4.54 L Hgb 14.5 D Hct 41.8 L MCV 92.1 MCH 31.9 MCHC 34.7 RDW 13.1 Plt Count 136 L MPV 9.1 Immature Gran % (Auto) Not Reportable Neut % (Auto) Not Reportable Lymph % (Auto) Not Reportable [place] % (Auto) Not Reportable Eos % (Auto) Not Reportable Baso % (Auto) Not Reportable Lymph # (Auto) Not Reportable [place] # (Auto) Not Reportable Eos # (Auto) Not Reportable Baso # (Auto) Not Reportable Abs Immat Gran (auto) Not Reportable Absolute Neuts (auto) Not Reportable Absolute Nucleated RBC Not Reportable Total Counted 100 Neutrophils % (Manual) 66 Band Neutrophils % 8 H Lymphocytes % (Manual) 11.0 L Monocytes % (Manual) 14 H Basophils % (Manual) 1 Nucleated RBC % Not Reportable Abs Neuts (Manual) 2.59 Abs Lymphs (Manual) 0.38 L Abs Monocytes (Manual) 0.49 Abs Basophils (Manual) 0.03 Platelet Estimate Decreased Sodium 135 L Potassium 4.1 Chloride 104 Carbon Dioxide 24 Anion Gap 7 L BUN 25 H D Creatinine 1.10 Estim Creat Clear Calc 82 Estimated GFR > 60 Glucose 118 H Calcium 8.3 L Phosphorus 2.2 L Magnesium 2.2 Preliminary micro results at discharge 02/18/22 02:03 Blood Culture - Preliminary Blood 02/18/22 02:03 Blood Culture - Preliminary Blood ITS Impressions Abdomen X-Ray 02/18/22 06:52 IMPRESSION: 1. Nasogastric tube within a small hiatal hernia. Abdomen/
== END 2022-02-19 15:02 | disposition home or self-care (01) | DRG 390 ==
LOC: ANHED 07:08 → ANH3MEDSUR 11:32
PROVIDERS: Admitting Provider Internal Medicine; Emergency Provider Emergency Medicine; Visit Provider Family Medicine
DX: K56.609 Unspecified intestinal obstruction, unspecified as to partial versus complete obstruction (principal); D72.829 Elevated white blood cell count, unspecified; Z20.822 Contact with and (suspected) exposure to COVID-19; Z90.49 Acquired absence of other specified parts of digestive tract; Z87.19 Personal history of other diseases of the digestive system
CPT/HCPCS: 36415; 74018; 74177; 80048; 80053; 83605; 83690; 83735; 84100; 85025; 87040; 96361; 96374; 96375; 96376; 99285; C9803; J0131; J1170; J1650; J2270; J2405; J3480; J7030; J7060; Q9967; U0003; U0005

== ENCOUNTER 2022-04-05 16:38 | Emergency (ER) | payer OTHER, SELFPAY ==
[2022-04-05 17:00] VITALS: BP 134/90; PULSE 62; RESP 18; TEMP 36.3; O2SAT 98
--- NOTE | 2022-04-05 17:23 | ED.EYEPROB ---
HPI - Eye Problem General Chief complaint: Eye Problems Stated complaint: Lt Eye Irritation Time Seen by Provider: 04/05/22 17:45 Source: patient and RN notes reviewed Mode of arrival: ambulatory Limitations: no limitations History of Present Illness HPI Narrative: 57-year-old male presents concern for eye pain with possible foreign body. Reports this morning he felt like he had an eyelash in his left eye, he tried flushing it with water several times. Reports he has had irritation throughout the day, its mildly relieved when he closes his eye. He denies vision changes. He is not a contact lens wearer. He denies purulent drainage. chief complaint: eye pain Related Data Home Medications Medication Instructions Recorded Confirmed Unknown Nsaid 04/05/22 Allergies Allergy/AdvReac Type Severity Reaction Status Date / Time No Known Allergies Allergy Verified 04/05/22 17:53 Review of Systems Review of Systems: CONSTITUTIONAL: Denies malaise, chills, sweats, or fever. EYES: Denies visual changes. Reports left eye redness, irritation ENT: Denies rhinorrhea, congestion, sinus pain, otalgia or sore throat. SKIN: Denies rash or itching. NEUROLOGIC: Denies numbness, weakness, or headache. PSYCHIATRIC: Denies anxiety or depression. All systems reviewed & are unremarkable except as noted in HPI and below PMFSH Past Medical History Medical History (Updated 04/05/22 @ 18:00 by Hali Caballero NP) Ulcerative colitis Surgical History Surgical History History of appendectomy History of colectomy History of inguinal hernia repair Family History Family History Sibling Diabetes mellitus Mother Lung cancer Social History Social History Smoking status: Never smoker Alcohol intake: current Drinks per week: 1 Substance use: never Gender identity (if verbalized by the patient): Male Spiritual care concerns: No Comments At time of signature, agree with nursing past medical, surgical, social and family history. There is no relevant family history pertinent to the presenting complaint Exam Narrative: GENERAL: Well-appearing, well-nourished, and in no acute distress. HEAD: Normocephalic, atraumatic. EYES: PERRLA, sclera clear, and EOMI. No nystagmus. Left sclera injected; small black conchita noted upon exam, easily removed with flushing, small corneal abrasion noted upon Jauregui lamp exam, see note. Upper and lower eyelid unremarkable, no periorbital edema noted ENT: Nares clear, turbinates pink, no rhinorrhea or epistaxis. Mucous membranes moist. TM pearly mcintosh with sharp light reflex bilaterally; no tragal tenderness. NECK: Supple. CHEST: No respiratory distress. Speaks in full sentences. HEART: Regular rate and rhythm. SKIN: Warm, dry, no visible rash. NEURO: Alert and oriented x3. PSYCH: Normal mood and affect Course Course Emergency Course: Patient is aware of diagnosis, understands and agrees to treatment plan. Anticipatory guidance given. Patient agrees to follow-up as directed and is aware of reasons to seek care at the emergency department. Portions of this record may have been created with voice recognition software Level of Care: Express Care Visit Vital Signs Vital signs: Vital Signs Temperature 97.4 F L 04/05/22 17:00 Pulse Rate 62 04/05/22 17:00 Respiratory Rate 18 04/05/22 17:00 Blood Pressure 134/90 04/05/22 17:00 Pulse Oximetry 98 04/05/22 17:00 Temperature 97.4 F L 04/05/22 17:00 Pulse Rate 62 04/05/22 17:00 Respiratory Rate 18 04/05/22 17:00 Blood Pressure 134/90 04/05/22 17:00 Pulse Oximetry 98 04/05/22 17:00 Reviewed. Procedures Other Procedure Procedure 1: Other Procedure: Tetracaine 1 gtt instilled in left eye, fluorescein stain applied. Corneal abrasion noted upon jauregui
== END 2022-04-05 18:07 | disposition home or self-care (01) ==
PROVIDERS: Emergency Provider Nurse Practitioner
DX: S05.02XA Injury of conjunctiva and corneal abrasion without foreign body, left eye, initial encounter (principal); X58.XXXA Exposure to other specified factors, initial encounter
CPT/HCPCS: 99213; A9270; G0463

== ENCOUNTER 2023-04-20 14:58 | Emergency (ER) | payer OTHER, SELFPAY ==
[2023-04-20 15:17] VITALS: BP 140/83; PULSE 113; RESP 18; TEMP 36.2; O2SAT 98
--- NOTE | 2023-04-20 15:26 | ED.SKABFB ---
HPI - Skin/Abscess/Foreign Bdy General Chief complaint: Skin/Abscess/Foreign Body Stated complaint: rash Time Seen by Provider: 04/20/23 15:40 Source: patient, RN notes reviewed and old records reviewed Mode of arrival: ambulatory Limitations: no limitations History of Present Illness HPI narrative: 58-year-old male presents to the [facility] with redness, inflammation, itching, pain 17 days post hip replacement Patient reports that he had a hip replacement 17 days ago at the [facility]. states since then had a small red area of the surrounding tissue to the surgical site that has Steri-Strips in place. Since then area has become increased redness that is now into his abdomen, down to his knee and into the left buttock. States that he called the primary care provider and ortho clinic they told him just to take Benadryl. Patient comes here for further evaluation. Onset (ago): day(s) (17) Related Data Home Medications Medication Instructions Recorded Confirmed Unable to Obtain Home Medications 04/20/23 04/20/23 Allergies Allergy/AdvReac Type Severity Reaction Status Date / Time No Known Allergies Allergy Verified 04/20/23 15:22 Review of Systems Review of Systems: All systems reviewed & are unremarkable except as noted in HPI and below Constitutional: Constitutional: Reports no additional constitutional complaints Eyes: Eyes: Reports no additional eye complaints ENT: Reports system reviewed and no additional complaints, except as documented Cardiovascular: Cardiovascular: Reports no additional cardiovascular complaints, Denies chest pain and Denies dyspnea Respiratory: Respiratory: Reports no additional respiratory complaints, Denies chest congestion, Denies cough and Denies dyspnea Gastrointestinal: Gastrointestinal: Reports no additional gastrointestinal complaints, Denies abdominal pain, Denies nausea and Denies vomiting Musculoskeletal: Musculoskeletal: Reports no additional musculoskeletal complaints Integumentary/Breasts: Skin/Breast: Reports as per HPI, Reports erythema, Reports rash and Reports skin swelling Neurologic: Reports system reviewed and no additional complaints, except as documented Psychiatric: Psychiatric: Reports no additional psychiatric complaints Allergic/Immunologic: Allergic/Immunologic: Reports no additional allergic/immunologic complaints [facility] Past Medical History Medical History Ulcerative colitis Surgical History Surgical History (Updated 04/20/23 @ 20:11 by Hali Frost APRN) History of appendectomy History of colectomy History of inguinal hernia repair History of left hip replacement 5/23 Family History Family History Sibling Diabetes mellitus Mother Lung cancer Social History Social History Smoking status: Never smoker Alcohol intake: current Drinks per week: 1 Substance use: never Gender identity (if verbalized by the patient): Male Spiritual care concerns: No Comments At the time of my signature, I reviewed and agree with the nursing past medical, surgical, social, and family history. There is no relevant family history pertinent to the patient complaint. Exam Const: General: cooperative, healthy appearing, comfortable, no acute distress, well developed, alert and well nourished Nutritional Appearance: well nourished Orientation/consciousness: patient oriented x3 Limitations: no limitations HENMT: Head: normal to inspection Ears: hearing grossly normal bilaterally and external ears normal Face/Nose/Sinus: Normal external nose present, Normal nares present, Normal nasal mucous membranes and turbinates present and normal facial exam Face and sinus: normal facial exam Mouth: Yes lip normal Eyes: General: appearance normal, both eyes and all related structures Alignment and Posit
== END 2023-04-20 16:30 | disposition short-term general hospital (02) ==
PROVIDERS: Emergency Provider Nurse Practitioner
DX: T81.40XA Infection following a procedure, unspecified, initial encounter (principal); Z96.642 Presence of left artificial hip joint
CPT/HCPCS: 99211; 99212; G0463

== ENCOUNTER 2025-02-25 13:30 | Emergency (ER) | payer OTHER, SELFPAY ==
--- NOTE | ~2025-02-25 | XR_ITS ---
XR finger 5th LT min 2V 02/25/2025 14:07 Indication: Trauma. Open wound. Procedure: 4 views left fifth finger Comparison: No prior studies for comparison. Findings: There is a comminuted mildly displaced intra-articular oblique fracture involving the base of the left fifth distal phalanx. Moderate soft tissue swelling. There is fixed flexion deformity of the DIP joint. Impression: 1: Comminuted mildly displaced intra-articular oblique fracture left fifth distal phalanx proximally. Reviewed, dictated and finalized at location A. Impression: 1: Comminuted mildly displaced intra-articular oblique fracture left fifth dist al phalanx proximally.
[2025-02-25 13:37] VITALS: BP 152/93; PULSE 77; RESP 18; TEMP 36.4; O2SAT 100
--- NOTE | 2025-02-25 13:37 | ED.WOUNDLAC ---
HPI - Wound/Laceration General Chief Complaint: Wound/Laceration Stated Complaint: LT Hand Finger Cut Time Seen by Provider: 02/25/25 13:31 Source: patient Mode of arrival: ambulatory Limitations: no limitations History of Present Illness HPI narrative: Patient is a 60-year-old male who presents with left pinky laceration after getting it caught by a tow hitch. Patient reports it is throbbing. Covered wound with paper towel as it is still actively bleeding. States tetanus shot is not up-to-date. Patient states he has full sensation of finger. Related Data Allergies Allergy/AdvReac Type Severity Reaction Status Date / Time No Known Allergies Allergy Verified 02/25/25 14:40 Review of Systems Review of Systems: All systems reviewed & are unremarkable except as noted in HPI and below Constitutional: Constitutional: Denies body ache(s), Denies chills, Denies fatigue, Denies fever(s), Denies headache(s), Denies malaise and Denies weakness Eyes: Eyes: Denies blurry vision, Denies irritation and Denies loss of vision ENT: Denies otalgia, Denies headache(s), Denies nasal discharge, Denies sinus pain and Denies sore throat Cardiovascular: Cardiovascular: Denies chest pain, Denies irregular heart rhythm and Denies dyspnea Respiratory: Respiratory: Denies dyspnea Gastrointestinal: Gastrointestinal: Denies abdominal pain, Denies melena, Denies hematochezia, Denies diarrhea, Denies nausea and Denies vomiting Musculoskeletal: Musculoskeletal: Denies back pain, Denies myalgias and Denies arthralgias Integumentary/Breasts: Skin/Breast: Denies pruritus, Denies rash and Reports wounds Neurologic: Denies headache(s), Denies loss of vision and Denies weakness Psychiatric: Psychiatric: Reports no additional psychiatric complaints Endocrine: Endocrine: Denies fatigue PMFSH Past Medical History Medical History Ulcerative colitis Surgical History Surgical History History of left hip replacement 04/11 History of inguinal hernia repair History of appendectomy History of colectomy Family History Family History Sibling Diabetes mellitus Mother Lung cancer Social History Social History Smoking status: Never smoker Alcohol intake: current Drinks per week: 1 Substance use: never Gender identity (if verbalized by the patient): Male Spiritual care concerns: No Comments At time of signature, agree with nursing past medical, surgical, social and family history. There is no relevant family history pertinent to the presenting complaint. Exam Const: General: cooperative, healthy appearing, comfortable, no acute distress and well nourished Nutritional Appearance: well nourished Orientation/consciousness: patient oriented x3 Limitations: no limitations HENMT: Head: normal to inspection, normocephalic and atraumatic Ears: hearing grossly normal bilaterally and external ears normal Face/Nose/Sinus: Normal external nose present, normal facial exam and face symmetric Face and sinus: normal facial exam and face symmetric Mouth: Yes lip normal Eyes: General: appearance normal, both eyes and all related structures Alignment and Position: alignment normal and position normal Periorbital: periorbital findings normal Eyelids: eyelids normal Pupils: Equal, round and reactive pupils present EOM: EOMs intact bilaterally Neck: Neck: normal visual inspection, full ROM and supple Chest: Chest palpation & inspection: normal inspection of the chest Resp: Effort & Inspection: normal respiratory effort and able to speak in complete sentences Auscultation: clear to auscultation bilaterally Cardio: Rate: regular rate Rhythm: regular rhythm Heart sounds: S1 normal heart sound present and S2 normal heart sound present GI: Inspection: normal to inspection Skin: General skin exam: normal color and no rashes or lesions noted Neuro: General: patient oriented x3 and moves all extremities Cranial nerves: Yes Equal, round and reactive pupils present Speech: normal speech Gait exam (Neuro): Normal gait present Extrem: General: normal to inspection, full ROM and no edema Left upper extremity: hand normal capillary refill, neuromotor exam normal Details: wrist extension normal, thumb opposition normal, thumb IP flexion normal, thumb ADduction normal and fingers 2-5 ABduction normal, neurosensory exam normal Details: radial nerve sensory function normal, ulnar nerve sensory function normal, median nerve sensory function normal and digital nerve sensory function normal, tendon exam normal Location: of all digits Details: extensor tendon, flexor digitorum profundus and flexor digitorum superficialis, tenderness of the 5th digit at the distal phalanx, normal ROM of fingers, swelling of the 5th digit at the distal phalanx and laceration 5th digit dorsal aspect distal Details: linear (3 cm with 0.75 cm gape), actively bleeding and involving subcutaneous tissue; no foreign body present Hand/finger images:  1. 3 cm laceration, not well approximated Psych: Appearance: grossly normal and well kempt Mental Status: mental status grossly normal Speech and movement: Normal speech and movement present Affect: normal affect Attitude: cooperative Thought process: Normal thought process present Course Course Emergency Course: Patient is aware of diagnosis, understands and agrees to treatment plan. Anticipatory guidance given. Patient agrees to follow-up as directed and is aware of reasons to seek care at the emergency department. Portions of this record may have been created with voice recognition software Level of Care: Express Care Visit Vital Signs Vital signs: Reviewed Procedures Laceration Laceration 1: Date: 02/25/25 Time: 14:45 Site: hand Side (If applicable): left Size (cm): 3 Description: linear (gapping) Depth: simple, single layer Local Anesthetic: lidocaine 1% Amount of anesthesia used (mL): 3 Pre-repair: irrigated extensively ====== Skin Level ====== Skin layer closed with: nylon Size (cm): 5-0 Number of sutures: 5 Technique: simple, interrupted ====== Subcutaneous Layer ====== ====== Muscle Layer ====== ====== Tendon Layer ====== Dressing: Procedure explained to patient. Verbal consent obtained. Digital block initiated prior to soaking and irrigation. Repeated prior to suturing. Five sutures placed. Wound still oozing blood. Dressed with antibiotic ointment, nonadherent bandage and Coban. MDM - Wound/Laceration MDM Narrative Medical decision making narrative: Called and spoke with Dr. Springer due to finger having open fracture. Recommendation of covering with antibiotics, suturing after thorough irrigation and soaking and have patient follow-up in clinic. Tetanus shot updated. Digital block performed. Finger was soaked in iodine and sterile saline then irrigated with 300 mls of sterile saline. Digital block again prior to sutures. Five sutures placed. Patient tolerated well. It is instructed patient on wound care and to wear finger splint after bleeding has subsided. Wound is currently dressed with antibiotic ointment, nonadherent bandage and Coban. Educated patient on signs of cellulitis and worsening infection along with compartment syndrome. Patient and are able to repeat back signs symptoms of both and when to go to the emergency department. Patient declined stronger pain medication and states Tylenol will be enough. Referral given to Dr. Springer. Patient is finishing last days amoxicillin for UTI but will send patient Keflex for the next 7 days. Pt well hydrated appearing, in no respiratory distress, hemodynamically stable. Recommend supportive care. The patient is stable at time of discharge the clinical impression was discussed and the patient was given the opportunity to ask questions, which were addressed as completely as possible given the information available at present. Anticipatory guidance and return to care precautions were discussed and the importance of primary care follow-up was stressed and encouraged. The patient voiced understanding of the plan, indications to return, and the need for follow-up. Exam findings show no acute concerns or changes Patient is appropriate for outpatient treatment and follow-up. Differential Diagnosis Differential diagnosis: Likely laceration and other (Finger fracture) Medical Records Attestation: I reviewed the patient's medical records. Imaging Data Radiologist's impression: XR finger 5th LT min 2V 02/25/2025 14:07 Indication: Trauma. Open wound. Procedure: 4 views left fifth finger Comparison: No prior studies for comparison. Findings: There is a comminuted mildly displaced intra-articular oblique fracture involving the base of the left fifth distal phalanx. Moderate soft tissue swelling. There is fixed flexion deformity of the DIP joint. Impression: 1: Comminuted mildly displaced intra-articular oblique fracture left fifth distal phalanx proximally. Discharge Plan Discharge Clinical Impression: Laceration Finger fracture, left Qualifiers: Encounter type: initial encounter Finger: little finger Fracture type: open Phalanx: distal Fracture alignment: displaced Qualified Code(s): S62.637B - Displaced fracture of distal phalanx of left little finger, initial encounter for open fracture Patient Disposition: Home Condition: Stable Instructions: Finger Fracture (ED), Compartment Syndrome (DC) Additional Instructions: Please rest, ice and elevate the affected extremity. Follow up with Orthopedic Surgery in 1-2 days for further evaluation - please call for an appointment. Keep splint clean, dry and on. Please go to ER immediately for increased pain, tingling/numbness, swelling, redness, and fever Keep wound clean, and dry. Apply antibiotic ointment twice daily. Cover with bandage as needed to prevent contamination. Clean with soap and water twice daily, but do not soak, take baths, or swim until wound is completely healed. Do not clean with hydrogen peroxide. If any signs of infection such as redness, swelling, increasing pain, drainage of purulent discharge, streaks up your extremity develop, seek medical attention immediately. Followup with your primary care provider in [10-14] days for suture removal. After sutures are removed, keep your scar out of the sun. You may use OTC silicone pad and/or scar massage with ointment (for 10-15 min a day) after one month. Talk to your doctor if you think you aredeveloping a keloid. Patient Language: [place] Prescriptions: New cephalexin 500 mg capsule 500 mg PO QID 7 Days Qty: 28 0RF mupirocin 2 % ointment 1 applic topical BID Qty: 15 0RF Follow-up/Referrals: Keiry Springer MD [Physician] - 2 Days (OPEN FRACTURE Impression: 1: Comminuted mildly displaced intra-articular oblique fracture left fifth distal phalanx proximally.) Time of Disposition: 15:19
[2025-02-25] MEDS: TETANUS,DIPHTHERIA,AC PERTUSSIS ADULT (0.5 ML) BOOSTRIX IM (14:08)
[2025-02-25] MEDS: LIDOCAINE 1% LOCAL INJ 2 ML AMPUL 4 ML INFILTRATE (14:17)
--- OUTSIDE RECORDS SUMMARY | 2025-02-25 14:49 | XMS_ITS | Clinical Summary ---
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 Name Role Phone Unavailable Primary Care Provider Unavailabl e Social History Tobacco Use Types Packs/Day Years Used Date Smoking Tobacco: Never Assessed Sex and Gender Information Value Date Recorded Sex Assigned at Not on file Legal Sex Male 7:56 PM CDT Gender Identity Not on file Sexual Orientation Not on file Plan of Treatment Health Maintenance Due Date Last Done Comments Colorectal Cancer Screening Colonoscopy (10 Years) 1963 Annual Physical 1966 Hepatitis C 1981 DTaP, Tdap and Td Vaccines ( 1 - Tdap) 1982 Zoster Vaccines (1 of 2) 2013 COVID-19 Vaccine ( - 2023-2 5 season) 2024 RSV Immunization or 60+ Years (1 - 1-dose 75+ series) 2038 Meningococcal B Vaccine Aged Out No l onger eligible based on patient's age to complete this topic Meningococcal Vaccine Aged Out No joelle maritza eligible based on patient's age to complete this topic Pneumococcal Vaccine: Pediat rics (0 to 5 Years) and At-Risk Patients (6 to 64 Years) Aged Out No longer eligible b ased on patient's age to complete this topic RSV Immunizations Under 20 Months Aged Out No longer eligible based on patient's age to complete this topic
--- OUTSIDE RECORDS SUMMARY | 2025-02-25 14:49 | XMS_ITS | Patient Health Record ---
Author Organization [facility] Address [address] [place] [id number] Care Team Providers Care Regulatory Manager Name Role Phone MONIE ROSENBAUM Unavailable [phone] Reason For Referral No Information Immunizations Vaccine Route Administration Date Status Comme nts Pfizer 2nd Dose IM Intramuscular 01/09/2021 Administered Plan Of Treatment No Information Insurance Providers Payer Name Payer Address Payer Phone Subscriber Number Group Number Insured Name Patient Relationship to Insured Coverage Start Date Coverage End Date COVID19 HRSA Uninsured Testing and Treatment [facility] [address] [address] [place], [place] [id number] Abhijit Mathew Self - patient is the insured
== END 2025-02-25 14:02 | disposition home or self-care (01) ==
PROVIDERS: Emergency Provider Nurse Practitioner Family
DX: S62.637B Displaced fracture of distal phalanx of left little finger, initial encounter for open fracture (principal); X58.XXXA Exposure to other specified factors, initial encounter; Z23 Encounter for immunization
CPT/HCPCS: 12002; 29130; 73140; 90471; 90715; 99213; G0463; J2003